=== PATIENT | male | born 1935 | race Caucasian/White ===

== ENCOUNTER 2017-03-14 23:12 | Inpatient (IN) | payer MEDICARE ==
[~2017-03-14] VITALS: Ht 180.3 cm; Wt 91.4 kg
--- NOTE | ~2017-03-14 | PR ---
[place], [place] PROGRESS NOTE NAME: MIRZA OTERO JR [facility] CLINICT #: [id number] UNIT #: [id number] ROOM: 404 DOCTOR: ELISSA GANNON MD BIRTHDATE: [birth year] DOS: 03/17/2017 SUBJECTIVE: The patient is sitting almost flat in bed, does not appear in distress. Denies any ongoing complaint. Improved shortness of breath. OBJECTIVE: VITAL SIGNS: Blood pressure 141/74, heart rate 62, respiratory rate of 14, temperature 98.7. NECK: Good upstroke, no bruit, no JVD. HEART: S1, S2 with no rub. LUNGS: Decreased air movement, but no wheezing, no rales. ABDOMEN: Obese, soft, nontender, present bowel sounds. EXTREMITIES: Lower extremities, no edema. ASSESSMENT AND PLAN: Presentation with decompensated congestive heart failure. The patient was quite significantly noncompliant with his followup and his medication along with salt intake. The patient's blood pressure continued to be slightly elevated. For that, I will add Imdur 30 mg once a day. Coreg will be adjusted to be 12.5 mg b.i.d. since the patient was taking 25 mg only once a day. A BMP will be checked today prior to his discharge, increased activity and the patient can be discharged home. Care was discussed with Dr. Bautista and will be arranging for an EP followup in [place] hopefully within the next week. ____ was called and a message was left in that regard. Dr. Bautista also will be having her medical secretary receptionist also to follow up on that issue. We will be seeing the patient in our office within 2-4 weeks as an outpatient. Any change in symptoms, the patient was advised to call back immediately. 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 Low salt diet was emphasized. Smoking cessation was also emphasized. ELISSA GANNON MD CM:PNJORDEN [id number] ELISSA GANNON MD 03/19/17 1542 interface
--- NOTE | ~2017-03-14 | CON ---
[place], [place] REPORT OF CONSULTATION NAME: MIRZA OTERO JR UNIT #: [id number] ROOM: 404 DOCTOR: ELISSA GANNON MD BIRTHDATE: [birth year] DOS: 03/16/2017 REQUESTING PHYSICIAN: Dr. Romero. REASON FOR CONSULTATION: Shortness of breath. ASSESSMENT: 1. Current presentation with shortness of breath, dyspnea on exertion. 2. Evidence of volume overload. 3. Long history of noncompliance. 4. History of severe cardiomyopathy, status post automatic implantable cardioverter-defibrillator placement, last checked was 3 years ago. 5. Noncompliance with salt intake. 6. Active tobacco abuse. 7. History of coronary artery disease, status post percutaneous transluminal coronary angioplasty, stent placement in 2008, status post automatic implantable cardioverter-defibrillator placement, apparently it is a [employer] in 2009. 8. Obesity with probable obstructive sleep apnea. PLAN: 1. Cycle cardiac enzymes. 2. I agree with increased Lasix 40 mg b.i.d. 3. Daily weight with strict I's and O's along with daily BMP. 4. Increase lisinopril to ____ mg b.i.d. 5. Hold potassium. 6. Initiate Aldactone 25 mg once a day. 7. Imdur will be added to patient's medication in a.m. 7. Check AICD (company has been called). 8. Smoking cessation. 9. Sleep study. 10. Early followup within 2-4 weeks as an outpatient. 11. Call for any change in symptoms. HISTORY AND PHYSICAL: The patient is a pleasant 81-year-old gentleman, unknown to our practice, was well known to [facility], last seen there was in 2013. Apparently, the patient then lost followup, even with his AICD. The patient presented to the hospital with a few days history of shortness of breath, dyspnea on exertion along with occasional cough. No fever. No chills. No night sweats. No reported chest pain, chest pressure, heaviness or tightness. No jaw pain, left arm pain. No back pain. Never had any symptomatic palpitation or any associated dizziness, lightheadedness or near syncope. He sleeps on one pillow with no reported PND, orthopnea or pedal edema. The patient had been doing well. He still works without any provoked cardiac complaints, except for the shortness of breath. The patient admits to noncompliance with his medication and his followup on his ICD. No fever. No chills. No night sweats. Maintains good appetite. No weight loss. PAST MEDICAL HISTORY: As detailed in my assessment. [place], [place] REPORT OF CONSULTATION NAME: MIRZA OTERO JR UNIT #: [id number] ROOM: 404 DOCTOR: ELISSA GANNON MD BIRTHDATE: [birth year] SOCIAL HISTORY: The patient continues to smoke, has been doing this since he was 28 years old. No history of heavy alcohol or illicit drug abuse. FAMILY HISTORY: Not applicable in view of patient's age. CURRENT MEDICATIONS: Lasix, Coreg, lisinopril, vitamin D, potassium, aspirin, Protonix, Zocor, Lovenox, Rocephin, Restoril, Zofran, bisacodyl and Dulcolax. ALLERGIES: The patient has no known drug allergies. REVIEW OF SYSTEMS: The patient currently denies any headache, diplopia or blurred vision. No fever. No chills. No night sweats. No abdominal pain. No bright red blood per rectum or tarry stools. The patient admits to joint pain. No muscular pain. No anxiety. No depression. No polyuria. No polydipsia. No skin rash. Review of all other systems has been negative. PHYSICAL EXAMINATION: GENERAL: The patient is alert, oriented x 3, pleasant. The patient sitting almost completely flat in bed, does not appear in distress. No ongoing complaint. VITAL SIGNS: Blood pressure 144/64, heart rate 60, respiratory rate of 16, temperature 98.6. HEENT: Extraocular muscle intact. Pupils equal, round, reactive to light. Conjunctivae: No pallor. Throat: No petechiae. NECK: Good upstroke. Unable to appreciate any bruit. No lymphadenopathy. No thyromegaly. No evidence of JVD. HEART: S1, S2 with holosystolic murmur at the left upper sternal border. No rub or sternal heave. Distant heart sounds. CHEST AND BACK: No deformities. LUNGS: Significant decrease in air movement. There are no sanjay wheezing or rales. ABDOMEN: Obese, soft, nontender, present bowel sounds. No masses. No bruits. LOWER EXTREMITIES: There is mild edema bilateral with faint distal pulses. NEUROLOGIC: Grossly nonfocal. SKIN: No significant rash. DIAGNOSTIC DATA: Electrocardiogram shows normal sinus rhythm with paced ventricular beats. LABORATORY DATA: White count 9.2, hemoglobin 13. Potassium 3.6, glucose 174, magnesium 2.2, total cholesterol 123, LDL 59, HDL 35, TSH 6.3, T4 0.87. [place], [place] REPORT OF CONSULTATION NAME: SHANNA PINEDAMIRZA UNIT #: [id number] ROOM: 404 DOCTOR: ELISSA GANNON MD BIRTHDATE: [birth year] ELISSA GANNON MD CM:CONSTR:REPORT OF CONSULTATION 1147 03/19/17 1542 interface
[2017-03-14 04:00] VITALS: BP 147/66
[~2017-03-14 23:12] MED LIST: AMOXICILLIN500 MG PO; ASPIRIN81 M1 PO; BENTYL10 MG PO; CIPRO500 MG PO; COREG12.5 MG PO; COREG25 MG PO; FLAGYL500 MG PO; HYDROCODONE BIT1 T11 PO; KLOR-CON M2020 MEQ PO; LASIX20 MG PO; LISINOPRIL20 MG PO; LISINOPRIL5 MG PO; METFORMIN500 MG PO; PHAZYME180 MG PO; POTASSIUM20 MEQ PO; PROTONIX40 MG PO; SIMVASTATIN80 MG PO
[2017-03-14 23:18] VITALS: BP 171/84
[2017-03-14 23:51] LABS: BASO # 0.1 10*3/uL (0.0-0.1); BASO % 0.5 % (0.0-1.0); EOS # 0.1 10*3/uL (0.0-0.4); EOS % 1.3 % (1.0-4.0); HEMATOCRIT 41.5 % (42.0-52.0); HEMOGLOBIN 13.5 g/dl (14.0-18.0); LYMPH # 2.5 10*3/uL (1.3-4.4); LYMPH % 26.3 % (27.0-41.0); MEAN CELL VOLUME 97.6 fl (80.0-94.0); MEAN CORPUSCULAR HGB 31.8 pg (27.0-31.0); MEAN CORPUSCULAR HGB CONC 32.5 g/dl (33.0-37.0); MEAN PLATELET VOLUME 11.7 fl (9.6-12.3); MONO # 0.7 10*3/uL (0.1-1.0); MONO % 7.6 % (3.0-9.0); NEUT # 6.2 10*3/uL (2.3-7.9); NEUT % 63.9 % (47.0-73.0); PLATELET COUNT AUTOMATED 170 10*3/uL (130-400); RED BLOOD COUNT 4.25 10*6/uL (4.50-5.90); WHITE BLOOD COUNT 9.6 10*3/uL (4.8-10.8)
[2017-03-15 00:08] LABS: ALBUMIN 3.6 gm/dl (3.1-4.5); ALKALINE PHOSPHATASE 93 U/L (45-117); BUN 26 mg/dl (7-24); CHLORIDE 105 mmol/L (98-107); CREATININE 1.16 mg/dL (0.70-1.30); POTASSIUM 4.5 mmol/L (3.5-5.1); SGOT/AST 23 IU/L (3-35); SGPT/ALT 28 U/L (12-78); SODIUM 139 mmol/L (136-145); TOTAL PROTEIN 7.1 gm/dL (6.4-8.2)
[2017-03-15 00:09] LABS: TROPONIN I 0.015 ng/ml (<0.045)
[2017-03-15 00:52] VITALS: BP 167/79
[2017-03-15 01:08] VITALS: BP 171/80
--- NOTE | 2017-03-15 01:08 | NUR ---
A 81, admitted to 4E, under the services of GT Rod DO with a diagnosis of CHF. Chief complaint is SHORTNESS OF BREATH. Patient arrived via ambulatory from ER. Monitor applied. Initial assessment completed. Vital signs taken and recorded. GT ROD DO notified of admission to the unit. Orders received. See assessment for past medical history, medications and allergies. Patient and/or family oriented to unit. [facility] visitation policy reviewed. Clothing/patient valuable form completed. LORNA GARCIA
[2017-03-15] MEDS ORDERED: AMOXICILLIN500 M2 PO (01:20)
--- NOTE | 2017-03-15 01:30 | NUR ---
PATIENT DENIES ANY SHORTNESS OF BREATH, STATED HE GETS THAT WAY WHEN HE FORGETS TO TAKE HIS MEDS(LASIX). PATIENT STATED HE NEEDS TO CALL HIS WORK AND TELL THEM HE WONT BE IN TOMORROW, BUT WILL BE THERE FRI?? PATIENT LEFT WITH CALL LIGHT IN REACH.
--- NOTE | 2017-03-15 01:30 | NUR ---
PATIENT REFUSED JESUS MAYORGA.
--- NOTE | 2017-03-15 04:01 | NUR ---
PATIENT HAS COMPLAINT OF SHORTNESS OF BREATH, PRN BREATHING TREATMENT GIVEN. WILL MONITOR.
[2017-03-15 06:38] LABS: BASO # 0.1 10*3/uL (0.0-0.1); BASO % 0.5 % (0.0-1.0); EOS # 0.2 10*3/uL (0.0-0.4); EOS % 1.4 % (1.0-4.0); HEMATOCRIT 40.1 % (42.0-52.0); HEMOGLOBIN 12.8 g/dl (14.0-18.0); MEAN CELL VOLUME 97.1 fl (80.0-94.0); MEAN CORPUSCULAR HGB CONC 31.9 g/dl (33.0-37.0); MEAN PLATELET VOLUME 11.9 fl (9.6-12.3); MONO % 9.2 % (3.0-9.0); NEUT # 7.8 10*3/uL (2.3-7.9); NEUT % 70.5 % (47.0-73.0); PLATELET COUNT AUTOMATED 127 10*3/uL (130-400); RED BLOOD COUNT 4.13 10*6/uL (4.50-5.90); RED CELL DISTRI WIDTH 13.8 % (0-14.5); WHITE BLOOD COUNT 11.1 10*3/uL (4.8-10.8)
[2017-03-15 07:09] LABS: ALBUMIN 3.5 gm/dl (3.1-4.5); BUN 23 mg/dl (7-24); CHLORIDE 101 mmol/L (98-107); CHOLESTEROL 123 mg/dL (<200); CREATININE 1.16 mg/dL (0.70-1.30); PHOSPHOROUS 2.9 mg/dL (2.5-4.9); POTASSIUM 3.7 mmol/L (3.5-5.1); SGOT/AST 15 IU/L (3-35); SGPT/ALT 25 U/L (12-78); SODIUM 139 mmol/L (136-145); TRIGLYCERIDES 145 mg/dl (<150); VLDL CHOLESTEROL 29 mg/dL (6-40)
[2017-03-15 07:16] LABS: ALKALINE PHOSPHATASE 93 U/L (45-117); FREE T4 0.87 ng/dl (0.76-1.46); HDL CHOLESTEROL 35 mg/dl (40-60); LDL CHOLESTEROL 59 mg/dL (9-159)
[2017-03-15 08:00] VITALS: BP 129/54
[2017-03-15 08:16] LABS: VITAMIN D, 25-HYDROXY 9.4 ng/mL (30-100)
[2017-03-15 12:00] VITALS: BP 146/60
--- NOTE | 2017-03-15 12:30 | NUR ---
PTS BLOOD SUGAR 300. PT REFUSES SC INSULIN. PT STATES "I DO NOT MONITOR BLOOD SUGAR AT HOME AND I AM NOT TAKING INSULIN."
[2017-03-15 16:00] VITALS: BP 147/66
--- NOTE | 2017-03-15 19:45 | NUR ---
IN TO SEE PT, PT ASSESSMENT COMPLETE. NO NEW ABNORMALITIES NOTED. NO COMPLAINTS VOICED AT THIS TIME. RESPIRATIONS EASY AND UNLABORED. BLOOD SUGAR OBTAINED, PT REFUSING COVERAGE AT THIS TIME. IV SITE PATENT, DRESSING DRY AND IN TACT. ENCOURAGED USE OF CALL LIGHT FOR NEEDS/CONCERNS.
[2017-03-15 20:00] VITALS: BP 155/67
[2017-03-16] VITALS: BP 147/64
[2017-03-16 03:46] VITALS: BP 144/68
--- NOTE | 2017-03-16 04:00 | NUR ---
PT RESTING, RESPIRATIONS EASY AND UNLABORED. NO S/S OF DISTRESS. NO AWAKENED PER POLICY.
--- NOTE | 2017-03-16 05:30 | NUR ---
PT C/O TOOTH PAIN. NORCO ADMINISTERED AT THIS TIME. WILL MONITOR FOR EFFECTIVENESS. ALL OTHER AM MEDICATIONS GIVEN AT THIS TIME. IV SITE PATENT, DRESSING DRY AND IN TACT. ALL OTHER NEEDS MET. RESPIRATIONS EASY.
--- NOTE | 2017-03-16 06:30 | NUR ---
SUSSY EFFECTIVE PER PT.
[2017-03-16 07:30] LABS: BASO % 0.4 % (0.0-1.0); EOS # 0.1 10*3/uL (0.0-0.4); EOS % 1.5 % (1.0-4.0); HEMATOCRIT 39.9 % (42.0-52.0); LYMPH # 2.1 10*3/uL (1.3-4.4); LYMPH % 22.6 % (27.0-41.0); MEAN CELL VOLUME 96.4 fl (80.0-94.0); MEAN CORPUSCULAR HGB 31.4 pg (27.0-31.0); MEAN CORPUSCULAR HGB CONC 32.6 g/dl (33.0-37.0); MEAN PLATELET VOLUME 12.2 fl (9.6-12.3); MONO % 10.3 % (3.0-9.0); PLATELET COUNT AUTOMATED 128 10*3/uL (130-400); RED BLOOD COUNT 4.14 10*6/uL (4.50-5.90); RED CELL DISTRI WIDTH 13.8 % (0-14.5); WHITE BLOOD COUNT 9.2 10*3/uL (4.8-10.8)
[2017-03-16 07:31] LABS: CHLORIDE 102 mmol/L (98-107); POTASSIUM 3.6 mmol/L (3.5-5.1); SODIUM 140 mmol/L (136-145)
[2017-03-16 07:40] LABS: BUN 21 mg/dl (7-24); CREATININE 1.16 mg/dL (0.70-1.30); PHOSPHOROUS 2.8 mg/dL (2.5-4.9)
[2017-03-16 08:00] VITALS: BP 144/64
--- NOTE | 2017-03-16 08:00 | NUR ---
Systems Integration Analyst in to talk to patient. Patient states lives at home with and grandson. There are 10 steps in the home. Physician: Dr. Christy Martinez Pharmacy: [facility] services: none Patient's level of ADLs: INDEPENDENT Patient has working utilities: yes DME: none Follow-up physician's appointment after d/c: will be made by hospitalist nurse director upon discharge Does patient want to access PORTAL?: no Discharge plan discussed with patient. He lives at home with his and grandson. There are 10 steps down to his basement. He drives and is independent with his ADLs and ambulation. He works 5 days a week at the [employer] by the [employer]. Denies any home needs. When medically stable the patient will be discharged home. ULYSSES ALMAGUER
--- NOTE | 2017-03-16 11:17 | NUR ---
JAVID AT [facility] OFFICE MADE AWARE OF NEW CONSULT ORDER.
[2017-03-16 12:00] VITALS: BP 142/59
--- NOTE | 2017-03-16 15:00 | NUR ---
ASSUMED CARE OF PATIENT. PATIENT IS SITTING UP IN BED WATCHING TV. PATIENT IS COOPERATIVE AND PLEASANT. PATIENT IS KNOWN TO BE NONCOMPLIANT WITH DIABETIC TREATMENT. PATIENT IS CURRENTLY IN STABLE CONDITION.
--- NOTE | 2017-03-16 15:01 | NUR ---
PACEMAKER REP HERE TO INTERROGATE PT'S PACEMAKER.
--- NOTE | 2017-03-16 15:14 | NUR ---
DR LIRIANO MADE AWARE OF PACEMAKER REP STATING THAT PT'S PACEMAKER BATTERY NEEDS CHANGED.
[2017-03-16 16:00] VITALS: BP 126/59
--- NOTE | 2017-03-16 17:36 | NUR ---
PT REFUSED HIS INSULIN INJECTION. BLOOD GLUCOSE LEVEL IS 210.
[2017-03-16 20:00] VITALS: BP 131/55
--- NOTE | 2017-03-16 22:09 | NUR ---
PT REFUSED INSULIN INJECTION. PATIENT'S BLOOD GLUCOSE LEVEL IS 188.
[2017-03-17] VITALS: BP 133/50
--- NOTE | 2017-03-17 06:41 | NUR ---
PT RECEIVED TYLENOL FOR DENTAL PAIN RATED 4/10.
--- NOTE | 2017-03-17 07:10 | NUR ---
Shift chart check completed.
[2017-03-17 08:00] VITALS: BP 145/69
--- NOTE | 2017-03-17 08:58 | NUR ---
NO CHANGES TO MED REC
--- NOTE | 2017-03-17 11:03 | NUR ---
DR OCONNELL MAKING ROUNDS AND REQUESTED CARDIOLOGY BE CALLED ABOUT [facility] & PATIENT BEING ON COREG FOR DISCHARGE TODAY. CALL PLACED AND AWAITING RETURN CALL.
--- NOTE | 2017-03-17 11:30 | NUR ---
DR OCONNELL HERE TO SEE THE PATIENT & ALSO DR GANNON HERE AND CASE DISCUSSED BETWEEN THE TWO OF THEM. MEDS & DC PLANNING DISCUSSED.
[2017-03-17 11:58] LABS: BUN 22 mg/dl (7-24); CHLORIDE 101 mmol/L (98-107); CREATININE 1.27 mg/dL (0.70-1.30); POTASSIUM 3.9 mmol/L (3.5-5.1); SODIUM 138 mmol/L (136-145)
[2017-03-17 12:00] VITALS: BP 139/70
--- NOTE | 2017-03-17 12:12 | NUR ---
DR FOX NOTIFIED OF LAB RESULTS BACK
[2017-03-17] MEDS ORDERED: ALDACTONE25 MG PO (12:36)
[2017-03-17] MEDS ORDERED: LASIX20 MG PO (12:36)
[2017-03-17] MEDS ORDERED: LISINOPRIL20 MG PO (12:36)
[2017-03-17] MEDS ORDERED: COREG12.5 M1 PO (12:36)
[2017-03-17] MEDS ORDERED: IMDUR SA30 MG PO (12:36)
[2017-03-17] MEDS ORDERED: VITAMIN D-32000 UNI1 PO (12:38)
[2017-03-17] MEDS ORDERED: DOXYCYCLINE100 M3 PO (12:38)
--- NOTE | 2017-03-17 13:15 | NUR ---
Hep Lock discontinued. Site asymptomatic. Pressure applied. Sterile dressing applied. Discharge instructions reviewed with patient/family. Patient receptive and verbalizes understanding. Follow-up care arranged. Written instructions given to patient/family. AMBULATED OUT WITH ALL BELONGINGS
== END 2017-03-17 13:15 | disposition home or self-care (01) | DRG 291 ==
LOC: ED 23:12 → 4E 03-15 00:28
PROVIDERS: Family Medicine; Internal Medicine; Internal Medicine Nephrology; Student in an Organized Health Care Education/Training Program; ADMIT Internal Medicine
DX: I13.0 Hypertensive heart and chronic kidney disease with heart failure and stage 1 through stage 4 chronic kidney disease, or unspecified chronic kidney disease (principal); J18.1 Lobar pneumonia, unspecified organism; D69.6 Thrombocytopenia, unspecified; E11.22 Type 2 diabetes mellitus with diabetic chronic kidney disease; I42.9 Cardiomyopathy, unspecified; I50.23 Acute on chronic systolic (congestive) heart failure; D53.9 Nutritional anemia, unspecified; E55.9 Vitamin D deficiency, unspecified; F17.200 Nicotine dependence, unspecified, uncomplicated; N18.9 Chronic kidney disease, unspecified; I25.10 Atherosclerotic heart disease of native coronary artery without angina pectoris; K04.7 Periapical abscess without sinus; K21.9 Gastro-esophageal reflux disease without esophagitis; E66.9 Obesity, unspecified; Z68.28 Body mass index [BMI] 28.0-28.9, adult; I25.2 Old myocardial infarction; Z90.49 Acquired absence of other specified parts of digestive tract; Z98.49 Cataract extraction status, unspecified eye; Z95.810 Presence of automatic (implantable) cardiac defibrillator; Z95.5 Presence of coronary angioplasty implant and graft; Z82.3 Family history of stroke; Z79.84 Long term (current) use of oral hypoglycemic drugs; Z79.899 Other long term (current) drug therapy; Z79.82 Long term (current) use of aspirin; Z91.19 Patient's noncompliance with other medical treatment and regimen; Z71.6 Tobacco abuse counseling

== ENCOUNTER 2017-04-20 10:13 | Emergency (ER) | payer MEDICARE ==
[~2017-04-20] VITALS: Ht 177.8 cm; Wt 93.0 kg
[~2017-04-20 10:13] MED LIST changes: +ALDACTONE25 MG PO; +AMOXICILLIN500 M2 PO; +COREG12.5 M1 PO; +DOXYCYCLINE100 M3 PO; +IMDUR SA30 MG PO; +VITAMIN D-32000 UNI1 PO
[2017-04-20 11:10] LABS: BASO # 0.1 10*3/uL (0.0-0.1); BASO % 0.6 % (0.0-1.0); EOS # 0.3 10*3/uL (0.0-0.4); EOS % 2.5 % (1.0-4.0); HEMATOCRIT 39.6 % (42.0-52.0); HEMOGLOBIN 13.2 g/dl (14.0-18.0); LYMPH # 2.2 10*3/uL (1.3-4.4); LYMPH % 21.8 % (27.0-41.0); MEAN CELL VOLUME 96.1 fl (80.0-94.0); MEAN CORPUSCULAR HGB CONC 33.3 g/dl (33.0-37.0); MEAN PLATELET VOLUME 11.6 fl (9.6-12.3); MONO # 0.7 10*3/uL (0.1-1.0); MONO % 7.2 % (3.0-9.0); NEUT # 6.7 10*3/uL (2.3-7.9); NEUT % 67.4 % (47.0-73.0); PLATELET COUNT AUTOMATED 125 10*3/uL (130-400); RED BLOOD COUNT 4.12 10*6/uL (4.50-5.90); RED CELL DISTRI WIDTH 13.4 % (0-14.5)
[2017-04-20 11:24] LABS: ALBUMIN 3.7 gm/dl (3.1-4.5); ALKALINE PHOSPHATASE 81 U/L (45-117); BUN 22 mg/dl (7-24); CHLORIDE 100 mmol/L (98-107); CREATININE 1.34 mg/dL (0.70-1.30); POTASSIUM 4.2 mmol/L (3.5-5.1); SGOT/AST 15 IU/L (3-35); SGPT/ALT 21 U/L (12-78); SODIUM 137 mmol/L (136-145); TOTAL PROTEIN 7.4 gm/dL (6.4-8.2)
[2017-04-20 11:49] LABS: BILIRUBIN NEGATIVE (NEGATIVE); BLOOD NEGATIVE (NEGATIVE); CLARITY CLEAR (CLEAR); COLOR YELLOW (YELLOW); GLUCOSE NEGATIVE (NEGATIVE); KETONE NEGATIVE (NEGATIVE); LEUKO ESTERASE NEGATIVE (NEGATIVE); NITRITE NEGATIVE (NEGATIVE); SPECIFIC GRAVITY <= 1.005 (1.005-1.030); UROBILINOGEN 0.2 E.U./dl (0.2-1.0)
[2017-04-20 12:00] LABS: EPITHELIAL CELLS 0-2
[2017-04-20] MEDS ORDERED: MIRALAX17 GM PO (13:53)
== END 2017-04-20 14:08 | disposition home or self-care (01) ==
LOC: ED 10:13
PROVIDERS: Emergency Medicine
DX: R07.9 Chest pain, unspecified (principal); I25.10 Atherosclerotic heart disease of native coronary artery without angina pectoris; K21.9 Gastro-esophageal reflux disease without esophagitis; I25.2 Old myocardial infarction; E11.9 Type 2 diabetes mellitus without complications; I11.0 Hypertensive heart disease with heart failure; F17.200 Nicotine dependence, unspecified, uncomplicated; Z79.82 Long term (current) use of aspirin; Z79.899 Other long term (current) drug therapy

== ENCOUNTER 2018-02-10 09:34 | Emergency (ER) | payer MEDICARE ==
[~2018-02-10 09:34] MED LIST changes: +MIRALAX17 GM PO
[2018-02-10 10:01] LABS: BASO # 0.1 10*3/uL (0.0-0.1); BASO % 0.5 % (0.0-1.0); EOS # 0.1 10*3/uL (0.0-0.4); EOS % 1.4 % (1.0-4.0); HEMATOCRIT 37.6 % (42.0-52.0); HEMOGLOBIN 12.8 g/dl (14.0-18.0); LYMPH # 2.3 10*3/uL (1.3-4.4); LYMPH % 23.3 % (27.0-41.0); MEAN CELL VOLUME 96.9 fl (80.0-94.0); MONO # 0.7 10*3/uL (0.1-1.0); MONO % 7.3 % (3.0-9.0); NEUT # 6.5 10*3/uL (2.3-7.9); NEUT % 67.1 % (47.0-73.0); PLATELET COUNT AUTOMATED 158 10*3/uL (130-400); RED BLOOD COUNT 3.88 10*6/uL (4.50-5.90); RED CELL DISTRI WIDTH 13.4 % (0-14.5); WHITE BLOOD COUNT 9.8 10*3/uL (4.8-10.8)
[2018-02-10 10:11] LABS: ACT PARTIAL THROMBO TIME 22.8 SECONDS (20.8-31.5)
[2018-02-10 10:54] LABS: ALBUMIN 3.6 gm/dl (3.1-4.5); CREATININE 1.6 mg/dL (0.70-1.30); POTASSIUM 4.6 mmol/L (3.5-5.1); TOTAL PROTEIN 7.5 gm/dL (6.4-8.2)
[2018-02-10 11:41] LABS: BILIRUBIN NEGATIVE (NEGATIVE); BLOOD NEGATIVE (NEGATIVE); CLARITY CLEAR (CLEAR); COLOR YELLOW (YELLOW); GLUCOSE NEGATIVE (NEGATIVE); KETONE NEGATIVE (NEGATIVE); LEUKO ESTERASE NEGATIVE (NEGATIVE); NITRITE NEGATIVE (NEGATIVE); PH 6.5 (5.0-9.0); UROBILINOGEN 0.2 E.U./dl (0.2-1.0)
[2018-02-10 11:53] LABS: WBC 0-2 wbc/hpf (0-5)
[2018-02-10 11:54] LABS: RBC 0-2 rbc/hpf (0-2)
== END 2018-02-10 14:18 | disposition home or self-care (01) ==
LOC: ED 09:34
PROVIDERS: Emergency Medicine
DX: R10.9 Unspecified abdominal pain (principal); I25.10 Atherosclerotic heart disease of native coronary artery without angina pectoris; K21.9 Gastro-esophageal reflux disease without esophagitis; I25.2 Old myocardial infarction; I13.0 Hypertensive heart and chronic kidney disease with heart failure and stage 1 through stage 4 chronic kidney disease, or unspecified chronic kidney disease; E11.22 Type 2 diabetes mellitus with diabetic chronic kidney disease; N18.9 Chronic kidney disease, unspecified; I50.22 Chronic systolic (congestive) heart failure; F17.200 Nicotine dependence, unspecified, uncomplicated; Z79.899 Other long term (current) drug therapy; Z79.82 Long term (current) use of aspirin

== ENCOUNTER → 2018-10-29 | Outpatient (CLI) | payer MEDICARE ==
[2018-10-29 08:09] LABS: BILIRUBIN NEGATIVE (NEGATIVE); BLOOD NEGATIVE (NEGATIVE); CLARITY CLEAR (CLEAR); COLOR YELLOW (YELLOW); GLUCOSE 3+ (NEGATIVE); KETONE TRACE (NEGATIVE); LEUKO ESTERASE NEGATIVE (NEGATIVE); NITRITE NEGATIVE (NEGATIVE); PH 5.5 (5.0-9.0); SPECIFIC GRAVITY 1.025 (1.005-1.030); UROBILINOGEN 0.2 E.U./dl (0.2-1.0)
[2018-10-29 08:35] LABS: BASO # 0.1 10*3/uL (0.0-0.1); BASO % 0.7 % (0.0-1.0); EOS # 0.2 10*3/uL (0.0-0.4); EOS % 1.6 % (1.0-4.0); HEMATOCRIT 38.5 % (42.0-52.0); HEMOGLOBIN 12.4 g/dl (14.0-18.0); LYMPH # 2.2 10*3/uL (1.3-4.4); LYMPH % 21.5 % (27.0-41.0); MEAN CELL VOLUME 99.7 fl (80.0-94.0); MEAN CORPUSCULAR HGB 32.1 pg (27.0-31.0); MEAN CORPUSCULAR HGB CONC 32.2 g/dl (33.0-37.0); MEAN PLATELET VOLUME 12.1 fl (9.6-12.3); MONO # 0.9 10*3/uL (0.1-1.0); MONO % 9.3 % (3.0-9.0); NEUT # 6.7 10*3/uL (2.3-7.9); NEUT % 65.7 % (47.0-73.0); PLATELET COUNT AUTOMATED 142 10*3/uL (130-400); RED BLOOD COUNT 3.86 10*6/uL (4.50-5.90); RED CELL DISTRI WIDTH 13.6 % (0-14.5); WHITE BLOOD COUNT 10.1 10*3/uL (4.8-10.8)
[2018-10-29 08:41] LABS: ALBUMIN 3.5 gm/dl (3.1-4.5); CREATININE 2.09 mg/dL (0.70-1.30); PHOSPHOROUS 3.8 mg/dL (2.5-4.9)
[2018-10-29 08:42] LABS: POTASSIUM 4.9 mmol/L (3.5-5.1)
[2018-10-29 09:47] LABS: BACTERIA 2+; MUCOUS TRACE
[2018-10-29 09:52] LABS: VITAMIN D, 25-HYDROXY 16.3 ng/mL (30-100)
[2018-10-29 09:53] LABS: FERRITIN 265.6 ng/mL (22.0-322.0); PTH INTACT 66.5 pg/mL (18.5-88.0)
== END | disposition home or self-care (01) ==
LOC: LAB 01:55 → US 07:30 → LAB 07:30
PROVIDERS: Internal Medicine Nephrology
DX: I12.9 Hypertensive chronic kidney disease with stage 1 through stage 4 chronic kidney disease, or unspecified chronic kidney disease (principal); E11.22 Type 2 diabetes mellitus with diabetic chronic kidney disease; N18.3 Chronic kidney disease, stage 3 (moderate); N17.9 Acute kidney failure, unspecified; D63.1 Anemia in chronic kidney disease; N25.81 Secondary hyperparathyroidism of renal origin; Z79.899 Other long term (current) drug therapy

== ENCOUNTER 2019-08-26 12:21 | Inpatient (IN) | payer MEDICARE ==
[~2019-08-26] VITALS: Ht 179.1 cm; Wt 94.1 kg
[~2019-08-26 12:21] MED LIST changes: +CEPHALEXIN500 M1 PO; +METRONIDAZOLE500 M1 PO
[2019-08-26 12:25] VITALS: BP 70/40
[2019-08-26 13:00] VITALS: BP 72/40
[2019-08-26 13:09] LABS: BASO # 0.1 10*3/uL (0.0-0.1); BASO % 0.6 % (0.0-1.0); EOS # 0.4 10*3/uL (0.0-0.4); EOS % 3.4 % (1.0-4.0); HEMATOCRIT 34.5 % (42.0-52.0); LYMPH # 0.9 10*3/uL (1.3-4.4); LYMPH % 8.2 % (27.0-41.0); MEAN CELL VOLUME 100.6 fl (80.0-94.0); MEAN CORPUSCULAR HGB 32.1 pg (27.0-31.0); MEAN CORPUSCULAR HGB CONC 31.9 g/dl (33.0-37.0); MEAN PLATELET VOLUME 11.8 fl (9.6-12.3); MONO # 1.5 10*3/uL (0.1-1.0); MONO % 12.9 % (3.0-9.0); NEUT # 8.5 10*3/uL (2.3-7.9); NEUT % 73.9 % (47.0-73.0); PLATELET COUNT AUTOMATED 139 10*3/uL (130-400); RED BLOOD COUNT 3.43 10*6/uL (4.50-5.90); RED CELL DISTRI WIDTH 14.6 % (0-14.5); WHITE BLOOD COUNT 11.5 10*3/uL (4.8-10.8)
[2019-08-26 13:23] LABS: ALBUMIN 3.2 gm/dl (3.1-4.5); TOTAL PROTEIN 6.9 gm/dL (6.4-8.2)
[2019-08-26 13:24] LABS: CREATININE 4.93 mg/dL (0.70-1.30)
[2019-08-26 13:29] LABS: POTASSIUM 6.9 mmol/L (3.5-5.1)
[2019-08-26 16:10] VITALS: BP 99/49
[2019-08-26] MEDS ORDERED: COREG25 MG PO (16:50)
[2019-08-26] MEDS ORDERED: LASIX20 MG PO (16:51)
[2019-08-26] MEDS ORDERED: GLYBURIDE2.5 MG PO (16:53)
[2019-08-26] MEDS ORDERED: ANTI-DIARRHEAL2 MG PO (16:57)
[2019-08-26 18:04] LABS: CREATININE 4.76 mg/dL (0.70-1.30)
[2019-08-26 18:09] LABS: POTASSIUM 5.9 mmol/L (3.5-5.1)
[2019-08-26 20:00] VITALS: BP 107/45
[2019-08-26 20:30] LABS: BILIRUBIN NEGATIVE (NEGATIVE); BLOOD 2+ (NEGATIVE); CLARITY SL CLOUDY (CLEAR); COLOR YELLOW (YELLOW); GLUCOSE NEGATIVE (NEGATIVE); KETONE TRACE (NEGATIVE); LEUKO ESTERASE NEGATIVE (NEGATIVE); NITRITE NEGATIVE (NEGATIVE); UROBILINOGEN 0.2 E.U./dl (0.2-1.0)
[2019-08-26 20:35] LABS: BACTERIA 2+; RBC 0-2 rbc/hpf (0-2); WBC 21-30 wbc/hpf (0-5)
[2019-08-26 22:35] LABS: CREATININE 4.54 mg/dL (0.70-1.30); POTASSIUM 5.5 mmol/L (3.5-5.1)
[2019-08-27 01:01] VITALS: BP 115/48
[2019-08-27 07:50] LABS: CREATININE 4.13 mg/dL (0.70-1.30); POTASSIUM 5.5 mmol/L (3.5-5.1)
[2019-08-27 08:00] VITALS: BP 114/46
[2019-08-27 12:00] VITALS: BP 120/42
[2019-08-27 16:00] VITALS: BP 136/52
[2019-08-27 20:00] VITALS: BP 125/52
[2019-08-28] VITALS: BP 124/44
[2019-08-28 07:11] LABS: BASO % 0.3 % (0.0-1.0); EOS # 0.4 10*3/uL (0.0-0.4); EOS % 3.6 % (1.0-4.0); HEMATOCRIT 31.9 % (42.0-52.0); LYMPH # 1.6 10*3/uL (1.3-4.4); LYMPH % 16.8 % (27.0-41.0); MEAN CORPUSCULAR HGB 31.4 pg (27.0-31.0); MEAN CORPUSCULAR HGB CONC 32.3 g/dl (33.0-37.0); MEAN PLATELET VOLUME 11.4 fl (9.6-12.3); MONO % 10.2 % (3.0-9.0); NEUT # 6.7 10*3/uL (2.3-7.9); NEUT % 68.7 % (47.0-73.0); PLATELET COUNT AUTOMATED 132 10*3/uL (130-400); RED BLOOD COUNT 3.28 10*6/uL (4.50-5.90); RED CELL DISTRI WIDTH 14.4 % (0-14.5); WHITE BLOOD COUNT 9.7 10*3/uL (4.8-10.8)
[2019-08-28 07:20] LABS: MEAN CELL VOLUME 97.3 fl (80.0-94.0)
[2019-08-28 07:37] LABS: ALBUMIN 2.6 gm/dl (3.1-4.5); CREATININE 2.87 mg/dL (0.70-1.30); POTASSIUM 5.2 mmol/L (3.5-5.1); TOTAL PROTEIN 5.8 gm/dL (6.4-8.2)
[2019-08-28 07:57] LABS: PTH INTACT 142.7 pg/mL (18.5-88.0); VITAMIN D, 25-HYDROXY 20.6 ng/mL (30-100)
[2019-08-28 08:00] VITALS: BP 132/52
[2019-08-28 16:00] VITALS: BP 114/54
[2019-08-28 20:00] VITALS: BP 125/59
[2019-08-29] VITALS: BP 145/56
[2019-08-29 06:25] LABS: CREATININE 2.39 mg/dL (0.70-1.30); POTASSIUM 5.5 mmol/L (3.5-5.1)
[2019-08-29 08:18] VITALS: BP 140/66
[2019-08-29 12:00] VITALS: BP 132/50
[2019-08-29 16:00] VITALS: BP 130/62
[2019-08-29 18:34] LABS: CREATININE 2.23 mg/dL (0.70-1.30); POTASSIUM 5.3 mmol/L (3.5-5.1)
[2019-08-29 20:00] VITALS: BP 132/59
[2019-08-30 12:00] VITALS: BP 124/58
[2019-08-30 16:00] VITALS: BP 133/58
[2019-08-30 20:00] VITALS: BP 128/59
[2019-08-31 08:05] LABS: CREATININE 1.96 mg/dL (0.70-1.30); POTASSIUM 4.5 mmol/L (3.5-5.1)
== END 2019-08-31 09:00 | disposition home or self-care (01) | DRG 314 ==
LOC: ED 12:21 → 5E 14:55 → EDHOLD 14:55 → 5E 15:37
PROVIDERS: Emergency Medicine; Internal Medicine; Internal Medicine Nephrology; ADMIT Internal Medicine
DX: I95.9 Hypotension, unspecified (principal); N17.0 Acute kidney failure with tubular necrosis; I50.22 Chronic systolic (congestive) heart failure; N18.5 Chronic kidney disease, stage 5; I13.2 Hypertensive heart and chronic kidney disease with heart failure and with stage 5 chronic kidney disease, or end stage renal disease; N25.81 Secondary hyperparathyroidism of renal origin; K21.9 Gastro-esophageal reflux disease without esophagitis; E86.0 Dehydration; E11.22 Type 2 diabetes mellitus with diabetic chronic kidney disease; E11.65 Type 2 diabetes mellitus with hyperglycemia; I25.5 Ischemic cardiomyopathy; R62.7 Adult failure to thrive; E87.8 Other disorders of electrolyte and fluid balance, not elsewhere classified; E87.5 Hyperkalemia; E55.9 Vitamin D deficiency, unspecified; E86.1 Hypovolemia; I25.10 Atherosclerotic heart disease of native coronary artery without angina pectoris; E78.2 Mixed hyperlipidemia; Z95.810 Presence of automatic (implantable) cardiac defibrillator; I25.2 Old myocardial infarction; Z95.5 Presence of coronary angioplasty implant and graft; Z90.49 Acquired absence of other specified parts of digestive tract; Z98.41 Cataract extraction status, right eye; Z82.3 Family history of stroke; Z87.891 Personal history of nicotine dependence; Z87.01 Personal history of pneumonia (recurrent); Z79.899 Other long term (current) drug therapy; Z79.82 Long term (current) use of aspirin; Z68.28 Body mass index [BMI] 28.0-28.9, adult

== ENCOUNTER → 2020-01-01 | Outpatient (CLI) | payer MEDICARE ==
[~2020-01-01] MED LIST changes: +ANTI-DIARRHEAL2 MG PO; +GLYBURIDE2.5 MG PO
[2020-01-01 10:19] LABS: BASO # 0.1 10*3/uL (0.0-0.1); BASO % 0.7 % (0.0-1.0); EOS # 0.1 10*3/uL (0.0-0.4); EOS % 1.4 % (1.0-4.0); HEMATOCRIT 40.6 % (42.0-52.0); LYMPH # 2.3 10*3/uL (1.3-4.4); LYMPH % 22.9 % (27.0-41.0); MEAN CELL VOLUME 96.2 fl (80.0-94.0); MEAN CORPUSCULAR HGB 30.1 pg (27.0-31.0); MEAN CORPUSCULAR HGB CONC 31.3 g/dl (33.0-37.0); MONO # 0.9 10*3/uL (0.1-1.0); MONO % 9.4 % (3.0-9.0); NEUT # 6.4 10*3/uL (2.3-7.9); NEUT % 65.4 % (47.0-73.0); PLATELET COUNT AUTOMATED 169 10*3/uL (130-400); RED BLOOD COUNT 4.22 10*6/uL (4.50-5.90); RED CELL DISTRI WIDTH 13.5 % (0-14.5); WHITE BLOOD COUNT 9.9 10*3/uL (4.8-10.8)
[2020-01-01 10:40] LABS: ALBUMIN 3.4 gm/dl (3.1-4.5); CREATININE 1.65 mg/dL (0.70-1.30); POTASSIUM 4.4 mmol/L (3.5-5.1)
[2020-01-01 11:39] LABS: FERRITIN 126.6 ng/mL (22.0-322.0); PTH INTACT 138.4 pg/mL (18.5-88.0); VITAMIN D, 25-HYDROXY 21.6 ng/mL (30-100)
[2020-01-01 12:02] LABS: BILIRUBIN Negative; CLARITY Clear (CLEAR); COLOR Yellow (YELLOW); GLUCOSE Trace; KETONE Negative
[2020-01-01 12:03] LABS: BLOOD Negative (NEGATIVE); EPITHELIAL CELLS 0-2; LEUKO ESTERASE Negative (NEGATIVE); NITRITE Negative (NEGATIVE); PH 5.5 (4.5-8.0); WBC 0-2 wbc/hpf (0-5)
== END | disposition home or self-care (01) ==
LOC: LAB 09:15
PROVIDERS: ATTEND Internal Medicine Nephrology
DX: N18.3 Chronic kidney disease, stage 3 (moderate) (principal); D63.1 Anemia in chronic kidney disease; N25.81 Secondary hyperparathyroidism of renal origin; Z79.899 Other long term (current) drug therapy

== ENCOUNTER 2020-03-12 14:53 | Emergency (ER) | payer MEDICARE ==
[~2020-03-12] VITALS: Ht 177.8 cm; Wt 93.0 kg
[2020-03-12 15:56] LABS: ALBUMIN 3.3 gm/dl (3.1-4.5); CREATININE 1.42 mg/dL (0.70-1.30); POTASSIUM 4.2 mmol/L (3.5-5.1)
[2020-03-12 16:04] LABS: HEMATOCRIT 40.1 % (42.0-52.0); MEAN CELL VOLUME 95.7 fl (80.0-94.0); MEAN CORPUSCULAR HGB 30.1 pg (27.0-31.0); MEAN CORPUSCULAR HGB CONC 31.4 g/dl (33.0-37.0); MEAN PLATELET VOLUME 11.2 fl (9.6-12.3); PLATELET COUNT AUTOMATED 175 10*3/uL (130-400); RED BLOOD COUNT 4.19 10*6/uL (4.50-5.90); RED CELL DISTRI WIDTH 14.4 % (0-14.5); WHITE BLOOD COUNT 8.9 10*3/uL (4.8-10.8)
[2020-03-12 16:05] LABS: BASO % 0.5 % (0.0-1.0); EOS # 0.1 10*3/uL (0.0-0.4); EOS % 1.5 % (1.0-4.0); LYMPH # 2.3 10*3/uL (1.3-4.4); LYMPH % 25.6 % (27.0-41.0); MONO # 0.7 10*3/uL (0.1-1.0); MONO % 7.8 % (3.0-9.0); NEUT # 5.7 10*3/uL (2.3-7.9); NEUT % 64.4 % (47.0-73.0)
[2020-03-12 16:51] LABS: BILIRUBIN Negative (Negative); BLOOD Negative (Negative); CLARITY Clear (Clear); COLOR Yellow (Yellow); GLUCOSE Negative (Negative); KETONE Negative (Negative); LEUKO ESTERASE Negative (Negative); NITRITE Negative (Negative); UROBILINOGEN 0.2 E.U./dl (0.0-1.0)
[2020-03-12 17:09] LABS: RBC 0-2 rbc/hpf (0-2); WBC 0-2 wbc/hpf (0-5)
== END 2020-03-12 17:22 | disposition home or self-care (01) ==
LOC: ED 14:53
PROVIDERS: Emergency Medicine
DX: M54.5 Low back pain (principal); K21.9 Gastro-esophageal reflux disease without esophagitis; I13.0 Hypertensive heart and chronic kidney disease with heart failure and stage 1 through stage 4 chronic kidney disease, or unspecified chronic kidney disease; E11.22 Type 2 diabetes mellitus with diabetic chronic kidney disease; I50.9 Heart failure, unspecified; N18.30 Chronic kidney disease, stage 3 unspecified; Z79.82 Long term (current) use of aspirin; Z79.899 Other long term (current) drug therapy